=== PATIENT | male | born 1995 | race African-American/Black ===

== ENCOUNTER 2016-09-14 18:52 | Emergency (ER) | payer MEDICAID, OTHER ==
--- NOTE | 2016-09-14 21:45 | UC ---
Respiratory Complaint HPI - HPI Summary HPI Summary: SEVERAL WEEKS OF COUGH, SINUS PRESSURE, CHEST CONGESTION AND FATIGUE. NO FEVER, N/V/D. FEELS HE HAS GOTTEN WORSE OVER THE PAST FEW DAYS. - History of Current Complaint Chief Complaint: UCRespiratory Stated Complaint: SINUS COMPLAINT Time Seen by Provider: 09/14/16 21:36 Hx Obtained From: Patient Onset/Duration: Gradual Onset, Lasting Weeks, Still Present Timing: Constant Severity Initially: Moderate Severity Currently: Moderate Pain Intensity: 6 Pain Scale Used: 0-10 Numeric Character: Cough: Nonproductive Aggravating Factors: Nothing Alleviating Factors: Nothing Associated Signs And Symptoms: Positive: URI, Nasal Congestion, Sinus Discomfort. Negative: Fever, Chills, Pleuritic Chest Pain, Wheezing, Hemoptysis , Edema, Hoarseness - Allergies/Home Medications Allergies/Adverse Reactions: Allergies Allergy/AdvReac Type Severity Reaction Status Date / Time [place] Oil Allergy Intermediate Anaphylatic Verified 09/14/16 20:17 Shock Shrimp Flavor Allergy Intermediate Anaphylatic Verified 09/14/16 20:17 Shock aerosols Allergy Unknown Uncoded 09/14/16 20:17 Reaction Details PMH/Surg Hx/FS Hx/Imm Hx Previously Healthy: Yes - Family History Known Family History: Positive: Hypertension - grandmother Negative: Cardiac Disease, Diabetes - Social History Alcohol Use: None Substance Use Type: None Smoking Status (MU): Light Every Day Tobacco Smoker Review of Systems Constitutional: Fatigue ENT: Sore Throat, Nasal Discharge Respiratory: Cough Cardiovascular: Negative Gastrointestinal: Negative Neurological: Headache All Other Systems Reviewed And Are Negative: Yes Physical Exam Triage Information Reviewed: Yes Appearance: No Pain Distress, Well-Nourished, Ill-Appearing - MILDLY Vital Signs: Initial Vital Signs Temp 98.9 F 09/14/16 20:14 Pulse 71 09/14/16 20:14 Resp 18 09/14/16 20:14 BP 130/64 09/14/16 20:14 Pulse Ox 100 09/14/16 20:14 Vital Signs Reviewed: Yes Eyes: Positive: Conjunctiva Clear ENT: Positive: Hearing grossly normal, Pharynx normal, TMs normal Neck: Positive: Supple, Nontender, Enlarged Nodes @ - MILD SPFL CERVICAL LAD Respiratory Exam: Normal Cardiovascular Exam: Normal Abdomen Description: Positive: Soft Musculoskeletal: Positive: No Edema Neurological: Positive: Alert Psychological: Positive: Age Appropriate Behavior Skin: Negative: rashes UC Diagnostic Evaluation - Laboratory O2 Sat by Pulse Oximetry: 100 Respiratory Course/Dx - Differential Dx/Diagnosis Provider Diagnoses: ACUTE BRONCHITIS Discharge - Discharge Plan Condition: Stable Disposition: HOME Prescriptions: Azithromycin [Azithromycin 500 MG TAB] 500 mg PO DAILY #4 tab Patient Education Materials: Acute Bronchitis (ED) Forms: *Work Release Referrals: No Primary Care Phys,NOPCP [Primary Care Provider] - Additional Instructions: YOUR SYMPTOMS MAY BE ALLERGICALLY OR VIRALLY MEDIATED BUT GIVEN THAT YOU ARE WORSENING WE WILL COVER FOR BACTERIAL INFECTION WITH ANTIBIOTICS. CALL THE NUMBER BELOW FOR ASSISTANCE IN ESTABLISHING WITH A PCP An additional resource available to assist in finding the appropriate physician for your health care needs is the [facility] ([facility]). You may contact them by calling [phone].
[2016-09-14 21:47] VITALS: BP 136/80
[2016-09-14] MEDS ORDERED: Azithromycin TAB* 250 MG PO ONE (21:47)
== END 2016-09-14 21:58 | disposition home or self-care (01) ==
LOC: UCEAST 18:52
DX: J20.9 Acute bronchitis, unspecified (principal); F17.210 Nicotine dependence, cigarettes, uncomplicated
CPT/HCPCS: 99212; A9270-GY; G0463

== ENCOUNTER 2016-09-18 15:35 | Emergency (ER) | payer MEDICAID, OTHER ==
[2016-09-18] MEDS ORDERED: Ketorolac INJ* 60 MG/2 ML VIAL IM ONE (15:59)
[2016-09-18] MEDS ORDERED: Acetaminophen TAB* 325 MG PO ONE (16:24)
[2016-09-18] MEDS ORDERED: Ibuprofen TAB* 400 MG PO ONE (16:24)
[2016-09-18 16:31] LABS: Hematocrit 45 % (42-52); Hemoglobin 15.6 g/dl (14.0-18.0); Mean Corpuscular HGB Conc 35 g/dl (31-36); Mean Corpuscular Hemoglobin 31 pg (27-31); Mean Corpuscular Volume 90 fL (80-94); Mean Platelet Volume 7 um3 (7.4-10.4); Red Blood Count 4.99 10^6/ul (4.0-5.4); Red Cell Distribution Width 13 % (10.5-15); White Blood Count 6.1 10^3/ul (3.5-10.8)
--- NOTE | 2016-09-18 16:31 | RAD ---
INDICATION: Cough, congestion and fever x6 days COMPARISON: Similar chest x-ray dated 5:15 613 TECHNIQUE: PA and lateral views of the chest were obtained. FINDINGS: The heart and mediastinum are normal in size and contour. The lungs are grossly clear. There is no evidence of large pleural effusion. Visualized bones are normal for the patient's age. There is no radiographic evidence of free air beneath the diaphragm IMPRESSION: No radiographic evidence of acute cardiopulmonary disease.
[2016-09-18 16:48] LABS: Albumin 4.5 g/dL (3.2-5.2); BUN/Creatinine Ratio 9.2 (8-20); C Reactive Protein 29.44 mg/L (< 5.00); Calcium 9.3 mg/dL (8.6-10.3); EGFR African American 98.3 (>60); EGFR Non-African American 76.4 (>60); Potassium 3.9 mmol/L (3.5-5.0); Total Bilirubin 0.4 mg/dL (0.2-1.0); Total Protein 7.5 g/dL (6.4-8.9)
--- NOTE | 2016-09-18 16:50 | ED ---
Influenza-Like Illness - HPI Summary HPI Summary: Patient presents with 5 days of bodyaches, sore throat, cough and congestion. He developed a fever three days ago and was evaluated at [facility] where he was diagnosed with pharyngitis and placed on a Z-pack. He has not improved. He is able to drink fluids but feels nauseous when he eats. He denies abdominal pain, OSCAR, CP, SOB, back or neck pain, or constipation. - History of Current Complaint Chief Complaint: EDFluSymptoms Time Seen by Provider: 09/18/16 15:49 Hx Obtained From: Patient Onset/Duration: Gradual Onset Severity: Severe Associated Signs & Symptoms: Fever - 103, Myalgia, Cough, Sore Throat, Nasal Congestion, Vomiting Related Hx: Possible Flu/Infectious Exposure - Allergy/Home Medications Allergies/Adverse Reactions: Allergies Allergy/AdvReac Type Severity Reaction Status Date / Time [place] Oil Allergy Intermediate Anaphylatic Verified 09/18/16 15:41 Shock Shrimp Flavor Allergy Intermediate Anaphylatic Verified 09/18/16 15:41 Shock aerosols Allergy Unknown Uncoded 09/18/16 15:41 Reaction Details PMH/Surg Hx/FS Hx/Imm Hx Previously Healthy: Yes Infectious Disease History: No Infectious Disease History: Denies: Traveled Outside the [place] in Last 30 Days - Family History Known Family History: Positive: Hypertension - grandmother Negative: Cardiac Disease, Diabetes - Social History Occupation: Employed Full-time Lives: With Family Alcohol Use: None Substance Use Type: Reports: None Smoking Status (MU): Light Every Day Tobacco Smoker Cessation Counseling: Patient Advised to Stop Review of Systems Positive: Fever, Chills, Fatigue Negative: Photophobia, Blurred Vision, Diplopia Positive: Sore Throat, Nasal Discharge. Negative: Ear Ache Negative: Chest Pain Positive: Cough. Negative: Shortness Of Breath Positive: Vomiting. Negative: Abdominal Pain, Diarrhea Positive: Myalgia Negative: Headache, Weakness, Paresthesia All Other Systems Reviewed And Are Negative: Yes Physical Exam Triage Information Reviewed: Yes Vital Signs On Initial Exam: Initial Vitals Temp Pulse Resp BP Pulse Ox 103.1 F 96 20 116/78 100 09/18/16 15:41 09/18/16 15:41 09/18/16 15:41 09/18/16 15:41 09/18/16 15:41 Vital Signs Reviewed: Yes Appearance: Positive: Well-Appearing, No Pain Distress, Well-Nourished Skin: Positive: Warm, Skin Color Reflects Adequate Perfusion, Dry, Soft Head/Face: Positive: Temporal Artery Tenderness Eyes: Positive: EOMI, MORGAN, Conjunctiva Clear ENT: Positive: Hearing grossly normal, Pharyngeal erythema, TMs normal, Tonsillar swelling - mild bilateral. Negative: Trismus Neck: Positive: Supple, Nontender, Enlarged Nodes @ - mild bilateral submandibular Respiratory/Lung Sounds: Positive: Clear to Auscultation, Breath Sounds Present Cardiovascular: Positive: RRR Abdomen Description: Positive: Nontender, Soft. Negative: CVA Tenderness (R), CVA Tenderness (L), Distended, Guarding Bowel Sounds: Positive: Present Musculoskeletal: Positive: Strength/ROM Intact. Negative: Edema Left, Edema Right Neurological: Positive: Sensory/Motor Intact, Alert, Oriented to Person Place, Time, [place] Bundle Intact Distally, Normal Gait Psychiatric: Positive: Affect/Mood Appropriate AVPU Assessment: Alert Diagnostics - Vital Signs Vital Signs Temp Pulse Resp BP Pulse Ox 09/18/16 15:41 103.1 F 96 20 116/78 100 - Laboratory Lab Results: Lab Results Negative rapid strep, influenza and monospot 09/18/16 Range/Units 16:20 WBC 6.1 (3.5-10.8) 10^3/ul RBC 4.99 (4.0-5.4) 10^6/ul Hgb 15.6 (14.0-18.0) g/dl Hct 45 (42-52) % MCV 90 (80-94) fL MCH 31 (27-31) pg MCHC 35 (31-36) g/dl RDW 13 (10.5-15) % Plt Count 189 (150-450) 10^3/ul MPV 7 L (7.4-10.4) um3 Neut % (Auto) 59.6 (38-83) % Lymph % (Auto) 20.3 L (25-47) % [place] % (Auto) 19.3 H (1-9) % Eos % (Auto) 0 (0-6) % Baso % (Auto) 0.8 (0-2) % Absolute Neuts (auto) 3.6 (1.5-7.7) 10^3/ul Absolute Lymphs (auto) 1.2 (1.0-4.8) 10^3/ul Absolute Monos (auto) 1.2 H (0-0.8) 10^3/ul Absolute Eos (auto) 0 (0-0.6) 10^3/ul Absolute Basos (auto) 0 (0-0.2) 10^3/ul Absolute Nucleated RBC 0.01 10^3/ul Nucleated RBC % 0.1 Result Diagrams: 09/18/16 16:20 09/18/16 16:20 Lab Statement: Any lab studies that have been ordered have been reviewed, and results considered in the medical decision making process. Re-Evaluation - Re-Evaluation First Eval Re-Evaluation Time: 17:50 Change: Improved Comment: Patient has improved. Flu Symptom Course/Dx - Diagnoses Differential Diagnosis/HQI/PQRI: Positive: Bronchitis, Influenza, Pneumonia, Upper Respiratory Infection Provider Diagnoses: Viral syndrome Discharge - Discharge Plan Condition: Stable Disposition: HOME Patient Education Materials: Viral Syndrome (ED) Referrals: [facility] [Outside] Additional Instructions: Please call the number provided to establish care with a primary care provider for follow-up care. Return to the emergency department if symptoms worsen.
[2016-09-18 17:03] LABS: Mono Internal Control QC Line Present
[2016-09-18 17:04] LABS: Manual Entry Verification ROB0080
[2016-09-18 18:54] VITALS: BP 115/66
== END 2016-09-18 18:35 | disposition home or self-care (01) ==
LOC: ED 15:35
DX: B34.9 Viral infection, unspecified (principal); R50.9 Fever, unspecified; R05 Cough; J02.9 Acute pharyngitis, unspecified; R09.81 Nasal congestion; R11.10 Vomiting, unspecified; F17.210 Nicotine dependence, cigarettes, uncomplicated
CPT/HCPCS: 36415; 71020; 80053; 85025; 86140; 86308; 87502; 87651; 96372; 99282; A9270-GY; J1885

== ENCOUNTER 2017-03-06 17:24 | Emergency (ER) | payer SELFPAY ==
[2017-03-06] MEDS ORDERED: diPHENhydraMINE PO* 25 MG PO ONE (18:03)
[2017-03-06 18:29] LABS: Hematocrit 46 % (42-52); Hemoglobin 15.9 g/dl (14.0-18.0); Mean Corpuscular HGB Conc 34 g/dl (31-36); Mean Corpuscular Hemoglobin 32 pg (27-31); Mean Corpuscular Volume 94 fL (80-94); Mean Platelet Volume 7 um3 (7.4-10.4); Red Blood Count 4.92 10^6/ul (4.0-5.4); Red Cell Distribution Width 13 % (10.5-15); White Blood Count 9.1 10^3/ul (3.5-10.8)
--- NOTE | 2017-03-06 18:31 | RAD ---
INDICATION: Sore throat COMPARISON: None TECHNIQUE: A two-view soft tissue neck was performed FINDINGS: Epiglottis is not well evaluated. No are no definite abnormalities. The hypopharynx is not distended. The prevertebral soft tissues are normal. There is no acute bony change. IMPRESSION: LIMITED EVALUATION OF THE EPIGLOTTIS. HOWEVER, NO SPECIFIC ABNORMALITIES.
[2017-03-06] MEDS ORDERED: Ketorolac INJ* 60 MG/2 ML VIAL IM ONE (19:24)
[2017-03-06] MEDS ORDERED: Dexamethasone IV* 4 MG/ML 1 ML (4 MG) IM ONE (19:26)
[2017-03-06] MEDS ORDERED: Ketorolac INJ* 30 MG/ML 1 ML VIAL IV ONE (19:30)
[2017-03-06] MEDS ORDERED: Famotidine IV* 10 MG/ML 2 ML (20 mg) IV SLOW PU ONE (19:30)
[2017-03-06] MEDS ORDERED: methylPREDNISolone 125 MG* 2 ML VIAL IV ONE (19:32)
[2017-03-06] MEDS ORDERED: Amoxicillin/Clavulanate TAB* 875 MG PO ONE (21:06)
[2017-03-06 21:24] VITALS: BP 122/79
--- NOTE | 2017-03-06 21:40 | ED ---
Josh Houston Thomas, scribed for Andi Goff MD on 03/06/17 at 1815 . Throat Pain/Nasal Congestion - HPI Summary HPI Summary: The pt is a 21 y/o M presenting to the ED c/o painful swollen uvula that began today at 12:30. The pt rates the pain 8/10. The pain is aggravated and alleviated by nothing. 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 Pt additionally c/o dysphagia and lightheadedness. Pt denies any other swelling in his body. PMHx: previously healthy. PSHx: appendectomy. SHx: current smoker, no alcohol use, no illicit drug use. FHx: HTN. - History of Current Complaint Chief Complaint: EDGeneral Time Seen by Provider: 03/06/17 17:52 Hx Obtained From: Patient Onset/Duration: Lasting Hours - onset today at 12:30 Associated Signs And Symptoms: Positive: Dysphagia Cough: None Related History: Smoking - Allergies/Home Medications Allergies/Adverse Reactions: Allergies Allergy/AdvReac Type Severity Reaction Status Date / Time [place] Oil Allergy Intermediate Anaphylatic Verified 09/18/16 15:41 Shock Shrimp Flavor Allergy Intermediate Anaphylatic Verified 09/18/16 15:41 Shock aerosols Allergy Unknown Uncoded 09/18/16 15:41 Reaction Details PMH/Surg Hx/FS Hx/Imm Hx Previously Healthy: No Cardiovascular History: Denies: Hx Congestive Heart Failure Respiratory History: Denies: Hx Lung Cancer - Surgical History Surgery Procedure, Year, and Place: None Infectious Disease History: No Infectious Disease History: Denies: Traveled Outside the [place] in Last 30 Days - Family History Known Family History: Positive: Hypertension - grandmother Negative: Cardiac Disease, Diabetes - Social History Alcohol Use: None Substance Use Type: Reports: None Smoking Status (MU): Light Every Day Tobacco Smoker Review of Systems Negative: Fever Positive: Other - POS: swollen red uvula, dysphagia Neurological: Other - POS: lightheadedness All Other Systems Reviewed And Are Negative: Yes Physical Exam Triage Information Reviewed: Yes Vital Signs On Initial Exam: Initial Vitals Temp Pulse Resp BP Pulse Ox 98.6 F 67 22 135/79 98 03/06/17 17:26 03/06/17 17:26 03/06/17 17:26 03/06/17 17:26 03/06/17 17:26 Vital Signs Reviewed: Yes Appearance: Positive: Well-Appearing, No Pain Distress, Well-Nourished Skin: Positive: Warm, Skin Color Reflects Adequate Perfusion, Dry Head/Face: Positive: Normal Head/Face Inspection Eyes: Positive: Normal ENT: Positive: Other - He has a swollen red uvula. It is hard to see anything else because he resisted. Neck: Positive: Supple, Nontender Respiratory/Lung Sounds: Positive: Clear to Auscultation, Breath Sounds Present Cardiovascular: Positive: RRR Abdomen Description: Positive: Nontender, Soft Bowel Sounds: Positive: Present Musculoskeletal: Positive: Normal Neurological: Positive: Normal Psychiatric: Positive: Normal, Affect/Mood Appropriate - [place] Coma Scale Coma Scale Total: 15 Diagnostics - Vital Signs Vital Signs Temp Pulse Resp BP Pulse Ox 03/06/17 17:46 98.6 F 67 22 135/79 98 03/06/17 17:26 98.6 F 67 22 135/79 98 - Laboratory Lab Results: Lab Results 03/06/17 03/06/17 Range/Units 18:20 18:20 WBC 9.1 (3.5-10.8) 10^3/ul RBC 4.92 (4.0-5.4) 10^6/ul Hgb 15.9 (14.0-18.0) g/dl Hct 46 (42-52) % MCV 94 (80-94) fL MCH 32 H (27-31) pg MCHC 34 (31-36) g/dl RDW 13 (10.5-15) % Plt Count 257 (150-450) 10^3/ul MPV 7 L (7.4-10.4) um3 Neut % (Auto) 57.4 (38-83) % Lymph % (Auto) 30.8 (25-47) % [place] % (Auto) 9.3 H (1-9) % Eos % (Auto) 1.6 (0-6) % Baso % (Auto) 0.9 (0-2) % Absolute Neuts (auto) 5.2 (1.5-7.7) 10^3/ul Absolute Lymphs (auto) 2.8 (1.0-4.8) 10^3/ul Absolute Monos (auto) 0.8 (0-0.8) 10^3/ul Absolute Eos (auto) 0.1 (0-0.6) 10^3/ul Absolute Basos (auto) 0.1 (0-0.2) 10^3/ul Absolute Nucleated RBC 0.01 10^3/ul Nucleated RBC % 0.1 C-Reactive Protein 2.28 (< 5.00) mg/L Result Diagrams: 03/06/17 18:20 Lab Statement: Any lab studies that have been ordered have been reviewed, and results considered in the medical decision making process. - Radiology XR Soft Tissue Neck Xray Interpretation: No Acute Changes - LIMITED EVALUATION OF THE EPIGLOTTIS. HOWEVER, NO SPECIFIC ABNORMALITIES. ED Physician has read this report and agrees. Radiology Interpretation Completed By: Radiologist Re-Evaluation - Re-Evaluation First Eval Re-Evaluation Time: 21:09 Change: Improved Comment: He is feeling better. His uvula is half the size it was when I first examined him. EENT Course/Dx - Course Course Of Treatment: Mr. Sousa presented with a complaint of a swollen and painful uvula starting about 1230 today. He denies any other symptoms and has no trouble breathing but it hurts to swallow. It was unclear if this was allergic or infectious but the pain points toward infectious. A soft tissue x- ray of his neck was negative for epiglotitis and his clinical exam revealed no pharyngeal abscess. His uvula was remarkably swollen and red. He had no leukocytosis or elevation of his CRP. He improeved a lot here with antihistamines, anti-inflammatories and steroids. His uvula shrank by 50%. I will start him on antibiotic just in case and he was given instructions for allergic reactions. His epipen prescription was refilled also. - Diagnoses Provider Diagnoses: Uvulitis Discharge - Discharge Plan Condition: Stable Disposition: HOME Prescriptions: Amoxicillin/Clavulanate TAB* [Augmentin TAB 875*] 875 mg PO BID #20 tab Epinephrine [Epipen 2-Jovon] 0.3 mg IM Q1HR #1 inj Patient Education Materials: Uvulitis (ED), General Allergic Reaction (ED) Forms: *Work Release Referrals: Ashkan Aldana MD [Medical Doctor] - 4 Days Additional Instructions: Follow up with Dr. Aldana within the week. Return to the emergency room for any new or worsening symptoms. The documentation as recorded by the Josh keen Thomas accurately reflects the service I personally performed and the decisions made by me, Andi Goff MD.
== END 2017-03-06 21:23 | disposition home or self-care (01) ==
LOC: ED 17:24
DX: K12.2 Cellulitis and abscess of mouth (principal); F17.210 Nicotine dependence, cigarettes, uncomplicated; J02.9 Acute pharyngitis, unspecified
CPT/HCPCS: 36415; 70360; 85025; 86140; 99282; A9270-GY; J1885; J2930

== ENCOUNTER 2018-07-06 05:09 | Emergency (ER) | payer SELFPAY ==
[2018-07-06] MEDS ORDERED: Metoclopramide IV* 5 MG/ML 2 ML VIAL IV SLOW PU ONE (05:24)
[2018-07-06] MEDS ORDERED: Ketorolac INJ* 30 MG/ML 1 ML VIAL IV PUSH ONE (05:24)
[2018-07-06] MEDS ORDERED: Morphine VIAL* 4 MG/ML VIAL (1 ml vial) IV ONE (05:25)
[2018-07-06] MEDS ORDERED: NS 0.9% 1000 ML** 1,000 ML IV ONE (05:25)
--- NOTE | 2018-07-06 05:27 | ED ---
Abdominal Pain/Male - HPI Summary HPI Summary: This pt is a 22 y/o male presenting to [facility] c/o sudden onset of right sided abd pain today. Pt reports his pain began about 1 to 1.5 hours [employer] suddenly. Associated symptoms of nausea, vomiting, hematuria. Pt is unable to tell if his pain radiates down to his testicles secondary to pain. Denies fever, chest pain , SOB. Pt notes he has had similar pain when he had appendicitis. PMHx: appendectomy. - History of Current Complaint Chief Complaint: EDAbdPain Stated Complaint: R ABD PAIN Hx Obtained From: Patient Onset/Duration: Sudden Onset, Lasting Hours, Still Present Timing: Lasting Hours Severity Currently: Severe Pain Intensity: 9 Pain Scale Used: 0-10 Numeric Location: Other - right sided abd pain Radiates: No Aggravating Factor(s): Nothing Alleviating Factor(s): Nothing Associated Signs And Symptoms: Positive: Nausea, Other - POS: hematuria. Negative: Fever, Chest Pain, Vomiting - Allergies/Home Medications Allergies/Adverse Reactions: Allergies Allergy/AdvReac Type Severity Reaction Status Date / Time MS [place] Oil [[place] Oil] Allergy Intermediate Anaphylatic Verified 09/18/16 15 :41 Shock [place] Shrimp Flavor Allergy Intermediate Anaphylatic Verified 09/18/16 15:41 [Shrimp Flavor] Shock aerosols Allergy Unknown Uncoded 09/18/16 15:41 Reaction Details PMH/Surg Hx/FS Hx/Imm Hx Cardiovascular History: Denies: Hx Congestive Heart Failure Respiratory History: Denies: Hx Lung Cancer - Surgical History Surgery Procedure, Year, and Place: Appendectomy Infectious Disease History: No Infectious Disease History: Denies: Traveled Outside the [place] in Last 30 Days - Family History Known Family History: Positive: Hypertension - grandmother Negative: Cardiac Disease, Diabetes - Social History Alcohol Use: None Substance Use Type: Reports: None Smoking Status (MU): Light Every Day Tobacco Smoker Review of Systems Negative: Fever, Chills Negative: Chest Pain Negative: Shortness Of Breath Positive: Abdominal Pain, Vomiting, Nausea Positive: hematuria Neurological: Negative All Other Systems Reviewed And Are Negative: Yes Physical Exam - Summary Physical Exam Summary: VITAL SIGNS: Reviewed. GENERAL: Patient is a well-developed and nourished male who is lying comfortable in the stretcher. Patient is not in any acute respiratory distress. HEAD AND FACE: No signs of trauma. No ecchymosis, hematomas or skull depressions. No sinus tenderness. EYES: PERRLA, EOMI x 2, No injected conjunctiva, no nystagmus. EARS: Hearing grossly intact. Ear canals and tympanic membranes are within normal limits. MOUTH: Oropharynx within normal limits. NECK: Supple, trachea is midline, no adenopathy, no JVD, no carotid bruit, no c- spine tenderness, neck with full ROM. CHEST: Symmetric, no tenderness at palpation LUNGS: Clear to auscultation bilaterally. No wheezing or crackles. CVS: Regular rate and rhythm, S1 and S2 present, no murmurs or gallops appreciated. ABDOMEN: Soft, non-tender. Right CVA tenderness. No signs of distention. No rebound no guarding, and no masses palpated. Bowel sounds are normal. EXTREMITIES: FROM in all major joints, no edema, no cyanosis or clubbing. NEURO: Alert and oriented x 3. No acute neurological deficits. Speech is normal and follows commands. SKIN: Dry and warm Triage Information Reviewed: Yes Vital Signs On Initial Exam: Initial Vitals Temp Pulse Resp BP Pulse Ox 96.6 F 78 20 127/88 99 07/06/18 05:13 07/06/18 05:13 07/06/18 05:13 07/06/18 05:13 07/06/18 05:13 Vital Signs Reviewed: Yes Diagnostics - Vital Signs Vital Signs Temp Pulse Resp BP Pulse Ox 07/06/18 05:13 96.6 F 78 20 127/88 99 - Laboratory Result Diagrams: 07/06/18 05:45 07/06/18 05:45 Lab Statement: Any lab studies that have been ordered have been reviewed, and results considered in the medical decision making process. - CT Abdomen/Pelvis CT CT Interpretation Completed By: Radiologist Summary of CT Findings: IMPRESSION: Mild right hydroureteronephrosis to the level of a punctate 2 mm calculus at the right ureterovesicular junction best seen on image #143, series #4. Dr. Todd has reviewed this report. Abdominal Pain Fem Course/Dx - Course Assessment/Plan: Pt is a 22 y/o male who presents with sudden onset of right sided abd pain today. Pt reports his pain began about 1 to 1.5 hours [employer] suddenly. Associated symptoms of nausea, vomiting, hematuria. Pt is unable to tell if his pain radiates down to his testicles secondary to pain. Blood work and UA obtained. WBC is 11.4. In the ED course the pt was given IV fluids, Toradol, morphine, Reglan. Abdomen/Pelvis CT shows mild right hydroureteronephrosis to the level of a punctate 2 mm calculus at the right ureterovesicular junction best seen on image #143, series #4. Pt will be discharged home with follow up from Dr. Chung. He was given prescriptions for percocet, motrin, flomax. Pt is instructed to return to the ED for any worsening or new symptoms. - Diagnoses Provider Diagnoses: Kidney stone Discharge - Sign-Out/Discharge Documenting (check all that apply): Patient Departure - Discharge home - Discharge Plan Condition: Stable Disposition: HOME Prescriptions: Ibuprofen TAB* [Motrin TAB* 800 MG] 800 mg PO Q6H PRN #30 tab PRN Reason: Pain oxyCODONE/Acetamin 5/325 MG* [Percocet 5/325 TAB*] 1 tab PO Q6H PRN #14 tab MDD 4 PRN Reason: Pain Tamsulosin CAP* [Flomax CAP*] 0.4 mg PO BEDTIME #7 cap Patient Education Materials: Kidney Stones (ED) Referrals: [facility] [Outside] Ignacio Chung MD [Medical Doctor] - Additional Instructions: Please follow up with Dr. Chung, urologist. RETURN TO EMERGENCY DEPARTMENT FOR ANY NEW OR WORSENING SYMPTOMS. - Attestation Statements Document Initiated by Scribe: Yes Documenting Scribe: Renu Rogers Provider For Whom Scribe is Documenting (Include Credential): Gianna Todd MD Scribe Attestation: IRenu, scribed for Gianna Todd MD on 07/06/18 at 0654. Status of Scribe Document: Ready
[2018-07-06 05:57] LABS: ABS Basophils 0.1 10^3/ul (0-0.2); ABS Eosinophils 0.1 10^3/ul (0-0.6); ABS Monocytes 0.9 10^3/ul (0-0.8); ABS Neutrophils 7.3 10^3/ul (1.5-7.7); ABS Nucleated RBC 0 10^3/ul; Eosinophil % 0.8 %; Hematocrit 48 % (42-52); Hemoglobin 16.2 g/dl (14.0-18.0); Mean Corpuscular HGB Conc 34 g/dl (31-36); Mean Corpuscular Hemoglobin 32 pg (27-31); Mean Corpuscular Volume 95 fL (80-94); Mean Platelet Volume 7.3 fL (7.4-10.4); Nucleated Red Blood Cells % 0; Platelet Count 325 10^3/ul (150-450); Red Blood Count 5.04 10^6/ul (4.00-5.40); Red Cell Distribution Width 13 % (10.5-15); White Blood Count 11.4 10^3/ul (3.5-10.8)
[2018-07-06 06:01] LABS: Urine Appearance Cloudy; Urine Bacteria Absent (Absent); Urine Bilirubin Negative (Negative); Urine Blood 3+ (Negative); Urine Color Straw; Urine Glucose Negative (Negative); Urine Ketones Negative (Negative); Urine Nitrite Negative (Negative); Urine Protein Negative (Negative); Urine Red Blood Cell 3+(>10/hpf) (Absent); Urine Specific Gravity 1.014 (1.010-1.030); Urine Urobilinogen Negative (Negative); Urine White Blood Cell Absent (Absent)
[2018-07-06 06:15] LABS: Albumin 4.1 g/dL (3.2-5.2); Albumin/Globulin Ratio 1.4 (1-3); BUN/Creatinine Ratio 13.8 (8-20); C Reactive Protein 4.1 mg/L (<8.01); Calcium 9.7 mg/dL (8.6-10.3); EGFR African American 101.4 (>60); EGFR Non-African American 83.8 (>60); Magnesium 1.8 mg/dL (1.9-2.7); Potassium 3.9 mmol/L (3.5-5.0); Total Bilirubin 0.3 mg/dL (0.2-1.0); Total Protein 7.1 g/dL (6.4-8.9)
[2018-07-06] MEDS ORDERED: Tamsulosin CAP* 0.4 MG PO ONE (06:49)
[2018-07-06 06:59] VITALS: BP 127/70
== END 2018-07-06 07:05 | disposition home or self-care (01) ==
LOC: ED 05:09
DX: N20.0 Calculus of kidney (principal); R31.9 Hematuria, unspecified; R11.2 Nausea with vomiting, unspecified; F17.210 Nicotine dependence, cigarettes, uncomplicated
CPT/HCPCS: 36415; 74176; 80053; 81003; 81015; 83735; 85025; 86140; 96361; 96374; 96375; 99283; J1885; J2270; J2765